=== PATIENT | female | born 1970 | race African-American/Black ===

== ENCOUNTER 2020-10-02 21:00 | Emergency (ER) | payer MEDICAID ==
[~2020-10-02] VITALS: Ht 162.6 cm; Wt 103.0 kg
[2020-10-02] MEDS ORDERED: ASPIRIN 81MG TABLET PO ONE (21:45)
[2020-10-02] MEDS ORDERED: NITROGLYCERIN 0.4MG TABLET SL SL PRN (21:45)
[2020-10-02 22:44] LABS: BASOPHILS % 0.8 % (0.0-2.0); EOSINOPHILS % 2.4 % (0.0-5.0); HEMATOCRIT. 39.2 % (36.0-48.0); HEMOGLOBIN. 12.9 g/dL (12.0-16.0); LYMPHOCYTES % 25.7 % (20.0-50.0); MEAN CORPUSCULAR HEMOGLOBIN 27.9 pg (28.0-32.0); MEAN CORPUSCULAR VOLUME 84.7 fL (81.0-99.0); MEAN PLATELET VOLUME 8.8 fl (7.4-10.4); MONOCYTES % 7.4 % (2.0-8.0); NEUTROPHILS % 63.7 % (40.0-76.0); PLATELET 374 x1000/uL (130-400); RED BLOOD CELL COUNT 4.62 mill/uL (4.2-5.4); RED CELL DISTRIBUTION WIDTH 16.7 % (11.6-14.6)
[2020-10-02 22:55] LABS: CHLORIDE 104 mEq/L (98-107)
[2020-10-02 23:45] VITALS: BP 131/71
== END 2020-10-02 23:48 | disposition home or self-care (01) ==
LOC: ER 21:00
DX: R07.89 Other chest pain (principal); I10 Essential (primary) hypertension; J45.909 Unspecified asthma, uncomplicated; Z98.51 Tubal ligation status
CPT/HCPCS: 36415; 71045; 80053; 83880; 84484; 85025; 93005; 99285; Z7610

== ENCOUNTER 2022-08-26 22:23 | Emergency (ER) | payer MEDICAID, OTHER ==
[~2022-08-26] VITALS: Ht 162.6 cm; Wt 95.0 kg
[2022-08-26 22:29] VITALS: BP 104/54
[2022-08-27] MEDS ORDERED: KETOROLAC 60MG/2ML VIAL IM STA (01:32)
[2022-08-27] MEDS ORDERED: ONDANSETRON HCL 4MG/2ML INJ IM ONE (01:45)
[2022-08-27] MEDS ORDERED: MAGNESIUM/ALUMINUM HYDROXIDE/SIMETHICONE 30ML UDC PO ONE (01:45)
[2022-08-27] MEDS ORDERED: FAMOTIDINE 20MG TABLET PO ONE (01:45)
[2022-08-27 02:04] LABS: CHLORIDE 105 mEq/L (98-107)
[2022-08-27 02:10] LABS: BASOPHILS % 0.4 % (0.0-2.0); EOSINOPHILS % 0.1 % (0.0-5.0); HEMATOCRIT. 40.4 % (36.0-48.0); HEMOGLOBIN. 13.2 g/dL (12.0-16.0); LYMPHOCYTES % 8.8 % (20.0-50.0); MEAN CORPUSCULAR HEMOGLOBIN 27.6 pg (28.0-32.0); MEAN CORPUSCULAR VOLUME 84.7 fL (81.0-99.0); MONOCYTES % 3.1 % (2.0-8.0); NEUTROPHILS % 87.6 % (40.0-76.0); PLATELET 412 x1000/uL (130-400); RED BLOOD CELL COUNT 4.76 mill/uL (4.2-5.4); RED CELL DISTRIBUTION WIDTH 15.8 % (11.6-14.6)
[2022-08-27 04:43] LABS: CLARITY URINE TURBID (CLEAR); COLOR URINE DARK YELLOW (YELLOW); KETONES URINE TRACE (NEGATIVE); LEUKOCYTE ESTERASE URINE 1+ (NEGATIVE); NITRITE URINE NEGATIVE (NEGATIVE); OCCULT BLOOD URINE NEGATIVE (NEGATIVE); PH URINE 5.5 (4.5-8.0); PROTEIN URINE 1+ (NEGATIVE); SPECIFIC GRAVITY URINE 1.032 (1.005-1.030)
[2022-08-27] MEDS ORDERED: ONDA4TAB50 PO (04:51)
[2022-08-27] MEDS ORDERED: NAPR-681 PO (04:51)
[2022-08-27] MEDS ORDERED: SULF1TAB48 PO (04:51)
== END 2022-08-27 05:11 | disposition home or self-care (01) ==
LOC: ER 22:33
DX: K29.00 Acute gastritis without bleeding (principal); N39.0 Urinary tract infection, site not specified; J45.909 Unspecified asthma, uncomplicated
CPT/HCPCS: 36415; 80053; 81003; 81025; 83690; 85025; 93005; 96372; 99284; J1885; J2405; Z7610

== ENCOUNTER 2024-01-17 22:41 | Emergency (ER) | payer SELFPAY ==
[~2024-01-17] VITALS: Ht 162.6 cm; Wt 96.0 kg
[~2024-01-17 22:41] MED LIST: FLUT15.844 LEFTNSTRL; NAPR-681 PO; ONDA4TAB50 PO; SULF1TAB48 PO
[2024-01-17] MEDS: IPRATROPIUM/ALBUTEROL 0.5-3(2.5)MG/3ML NEB HHN ONE (23:00)
[2024-01-17] MEDS: PREDNISONE 20MG TABLET PO ONE (23:15)
[2024-01-17 23:33] VITALS: PULSE 70; RESP 20; O2SAT 95
[2024-01-18] MEDS ORDERED: ALBU6.7H15 INH (00:53)
[2024-01-18] MEDS ORDERED: P50 MT (00:53)
[2024-01-18 01:51] VITALS: BP 131/76; PULSE 80; RESP 20; TEMP 98
== END 2024-01-18 01:54 | disposition home or self-care (01) ==
LOC: ER 22:41
DX: J45.901 Unspecified asthma with (acute) exacerbation (principal); Z98.890 Other specified postprocedural states
CPT/HCPCS: 71045; 94640; 99283; J7512; Z7610 ×3